=== PATIENT | female | born 1945 | race Caucasian/White ===

== ENCOUNTER → 2019-01-26 | Outpatient (CLI) | payer MEDICARE, OTHER ==
[~2019-01-26] MED LIST: ASPI-691 PO; CHOL500045 PO; DIPH12.532 PO; LEVO100T5 PO; LEVO25TA4 PO; LISI-170 PO; LISINIPRIL PO; T4 PO; ZINC25CA PO; ZINC50TA47 PO; [UNRECOGNIZED DRUG - OTHER]
== END | disposition home or self-care (01) ==
LOC: ROC 09:15
PROVIDERS: ATTEND Radiology Radiation Oncology
DX: C83.31 Diffuse large B-cell lymphoma, lymph nodes of head, face, and neck (principal)
CPT/HCPCS: G0463

== ENCOUNTER 2019-05-26 06:58 | Day surgery (SDC) | payer MEDICARE, OTHER ==
[~2019-05-26] VITALS: Ht 154.9 cm; Wt 61.0 kg
[2019-05-26] MEDS ORDERED: SODIUM CHLORIDE 0.9% 1,000 ML IV SCH (07:18)
[2019-05-26 07:19] VITALS: BP 121/76
[2019-05-26] MEDS ORDERED: PLEASE ENTER HEIGHT AND WEIGHT MC SCH (07:30)
[2019-05-26] MEDS ORDERED: LIDOCAINE 1%, 20ML ONE (08:57)
[2019-05-26] MEDS ORDERED: NALOXONE 1 MG/ML, 2ML ONE (09:30)
[2019-05-26] MEDS ORDERED: FLUMAZENIL 0.1 MG/1 ML, 5ML ONE (09:30)
[2019-05-26] MEDS ORDERED: MIDAZOLAM 1 MG/ML, 5ML ONE (09:30)
[2019-05-26] MEDS ORDERED: FENTANYL PF 100 MCG/2ML ONE (09:30)
== END 2019-05-26 10:45 | disposition home or self-care (01) ==
LOC: OUT 06:58
PROVIDERS: ATTEND Internal Medicine
DX: Z45.2 Encounter for adjustment and management of vascular access device (principal); C83.31 Diffuse large B-cell lymphoma, lymph nodes of head, face, and neck; E03.9 Hypothyroidism, unspecified; Z88.5 Allergy status to narcotic agent; Z88.8 Allergy status to other drugs, medicaments and biological substances
CPT/HCPCS: 36590; 77001; 99156; 99157; J2250; J3010; J2310